=== PATIENT | male | born 1950 | race Hispanic/Latino ===

== ENCOUNTER 2017-05-12 08:46 | Inpatient (IN) | payer MEDICARE ==
[2017-05-12 09:34] LABS: Basophils # (Auto) 0.1 K/mm3 (0.0-0.1); Basophils % (Auto) 0.6 % (0.0-1.8); Eosinophils # (Auto) 0.2 K/mm3 (0.0-0.4); Eosinophils % (Auto) 1.3 % (0.0-4.3); Hematocrit 41.4 % (35.5-45.6); Hemoglobin 13.3 gm/dl (11.8-15.2); Lymphocytes # (Auto) 0.8 K/mm3 (1.2-5.4); Lymphocytes % (Auto) 5.3 % (13.4-35.0); Mean Corpuscular HGB Conc 32 % (32-34); Mean Corpuscular Hemoglobin 29 pg (28-32); Mean Corpuscular Volume 89 fl (84-94); Monocytes # (Auto) 0.5 K/mm3 (0.0-0.8); Monocytes % (Auto) 3.5 % (0.0-7.3); Platelet Count 224 K/mm3 (140-440); Red Blood Count 4.64 M/mm3 (3.65-5.03); Red Cell Distribution Width 15.4 % (13.2-15.2)
--- NOTE | 2017-05-12 09:35 | XRay Report ---
AP CHEST: HISTORY: Fever, sepsis No comparison. Cardiomegaly and pulmonary venous congestion are identified. Small pleural effusions are likely present. Bronchovascular markings at the lung bases are prominent which is probably related to congestion. No convincing infiltrate with air bronchograms. IMPRESSION: Mild CHF.
[2017-05-12 09:44] LABS: INR 0.85 (0.87-1.13)
--- NOTE | 2017-05-12 09:49 | Emergency Department Report ---
ED General Adult HPI - General Chief complaint: Dyspnea/Respdistress Stated complaint: PEDRITO Time Seen by Provider: 05/12/17 08:56 Source: patient, EMS Mode of arrival: Stretcher Limitations: Physical Limitation - History of Present Illness Initial comments: The patient is a 66-year-old male with a history of COPD, CHF, diabetes. He was recently hospitalized at [facility] he states with pneumonia. He has had occasional cough which is not productive. He's been short of breath since last night. He denies fever or chills. He does not complain of active chest pain. Patient was transported via EMS on CPAP. He was given 2 nebs in route. Paramedics state that his pulse oximetry was 77% on their arrival. They initiated an IV but did not give any intravenous medication. -: Gradual, days(s) Location: chest (minimal chest pain) Radiation: non-radiation Severity scale (0 -10): 0 Quality: dull Consistency: intermittent Improves with: none Worsens with: none Associated Symptoms: shortness of breath Treatments Prior to Arrival: none - Related Data Home Medications Medication Instructions Recorded Confirmed Last Taken Allopurinol 300 mg PO DAILY 05/12/17 05/12/17 05/11/17 Carvedilol 25 mg PO BID 05/12/17 05/12/17 05/11/17 Furosemide [Lasix TAB] 40 mg PO QDAY 05/12/17 05/12/17 05/11/17 Allergies Allergy/AdvReac Type Severity Reaction Status Date / Time No Known Allergies Allergy Unverified 05/12/17 08:59 ED Review of Systems ROS: Stated complaint: PEDRITO Other details as noted in HPI Constitutional: denies: chills, fever Eyes: denies: eye pain, eye discharge, vision change ENT: denies: ear pain, throat pain Respiratory: shortness of breath. denies: cough, wheezing Cardiovascular: denies: chest pain, palpitations Endocrine: no symptoms reported Gastrointestinal: denies: abdominal pain, nausea, diarrhea Genitourinary: denies: urgency, dysuria Musculoskeletal: denies: back pain, joint swelling, arthralgia Skin: denies: rash, lesions Neurological: denies: headache, weakness, paresthesias Psychiatric: denies: anxiety, depression Hematological/Lymphatic: denies: easy bleeding, easy bruising ED Past Medical Hx - Past Medical History Previous Medical History?: Yes Hx Congestive Heart Failure: Yes Hx Diabetes: Yes Hx COPD: Yes - Social History Smoking Status: Never Smoker Substance Use Type: Alcohol - Medications Home Medications: Home Medications Medication Instructions Recorded Confirmed Last Taken Type Allopurinol 300 mg PO DAILY 05/12/17 05/12/17 05/11/17 History Carvedilol 25 mg PO BID 05/12/17 05/12/17 05/11/17 History Furosemide [Lasix TAB] 40 mg PO QDAY 05/12/17 05/12/17 05/11/17 History ED Physical Exam - General Limitations: Physical Limitation General appearance: alert, in no apparent distress, obese - Head Head exam: Present: atraumatic, normocephalic - Eye Eye exam: Present: normal appearance, PERRL, EOMI. Absent: scleral icterus - ENT ENT exam: Present: mucous membranes moist - Neck Neck exam: Present: normal inspection - Respiratory Respiratory exam: Present: accessory muscle use, decreased breath sounds. Absent: respiratory distress - Cardiovascular Cardiovascular Exam: Present: regular rate, normal rhythm. Absent: systolic murmur, diastolic murmur, rubs, gallop - GI/Abdominal GI/Abdominal exam: Present: soft, normal bowel sounds. Absent: distended, tenderness, guarding, rebound, rigid - Rectal Rectal exam: Present: deferred - Extremities Exam Extremities exam: Present: normal inspection, normal capillary refill. Absent: tenderness, pedal edema, joint swelling, calf tenderness - Back Exam Back exam: Present: normal inspection - Neurological Exam Neurological exam: Present: alert, oriented X3, CN II-XII intact. Absent: motor sensory deficit - Psychiatric Psychiatric exam: Present: normal affect, normal mood - Skin Skin exam: Present: warm, dry, intact, normal color. Absent: rash ED Course Vital Signs 05/12/17 05/12/17 05/12/17 08:46 08:55 08:58 Pulse Rate 104 H Respiratory 26 H 26 H Rate Blood Pressure Blood Pressure 147/93 [Left] O2 Sat by Pulse 91 94 94 Oximetry 05/12/17 05/12/17 05/12/17 09:00 09:10 09:30 Pulse Rate 108 H 104 H 100 H Respiratory 21 17 19 Rate Blood Pressure 127/86 137/101 Blood Pressure [Left] O2 Sat by Pulse 93 93 Oximetry 05/12/17 10:00 Pulse Rate 99 H Respiratory 18 Rate Blood Pressure 147/101 Blood Pressure [Left] O2 Sat by Pulse Oximetry - Reevaluation(s) Reevaluation #1: Patient was placed on BiPAP on arrival. He proceeded to do well. He was given Lasix. His chest x-ray was consistent with CHF. The radiologist did not believe that he had any signs of pneumonia. Nonetheless he was given 1 dose of Levaquin. He was admitted to telemetry in stable and improved condition. He was able to speak in adequate sentences even though he was on BiPAP. He stated he was much improved. Patient was given 1 dose of insulin. 05/12/17 11:02 05/12/17 11:[address] Barclay. the patient was admitted to the Hopsitalist service. ED Medical Decision Making - Lab Data Result diagrams: 05/12/17 09:02 05/12/17 09:02 Laboratory Results - last 24 hr 05/12/17 05/12/17 05/12/17 09:02 09:02 09:02 WBC 15.2 H RBC 4.64 Hgb 13.3 Hct 41.4 MCV 89 MCH 29 MCHC 32 RDW 15.4 H Plt Count 224 Lymph % (Auto) 5.3 L [place] % (Auto) 3.5 Eos % (Auto) 1.3 Baso % (Auto) 0.6 Lymph # 0.8 L [place] # 0.5 Eos # 0.2 Baso # 0.1 Seg Neutrophils % 89.3 H Seg Neutrophils # 13.6 H PT 12.0 L INR 0.85 L APTT 23.0 L Lactic Acid 2.00 Laboratory Results - last 24 hr 05/12/17 05/12/17 05/12/17 09:02 09:02 09:02 WBC 15.2 H RBC 4.64 Hgb 13.3 Hct 41.4 MCV 89 MCH 29 MCHC 32 RDW 15.4 H Plt Count 224 Lymph % (Auto) 5.3 L [place] % (Auto) 3.5 Eos % (Auto) 1.3 Baso % (Auto) 0.6 Lymph # 0.8 L [place] # 0.5 Eos # 0.2 Baso # 0.1 Seg Neutrophils % 89.3 H Seg Neutrophils # 13.6 H PT 12.0 L INR 0.85 L APTT 23.0 L ABG pH ABG pCO2 ABG pO2 ABG HCO3 ABG O2 Saturation ABG O2 Content ABG Base Excess ABG Hemoglobin ABG Carboxyhemoglobin ABG Methemoglobin Oxyhemoglobin FiO2 Sodium 132 L Potassium 4.9 Chloride 95.6 L Carbon Dioxide 21 L Anion Gap 20 BUN 35 H Creatinine 1.5 Estimated GFR 47 BUN/Creatinine Ratio 23 Glucose 497 H Lactic Acid Calcium 8.6 Total Bilirubin 0.30 Direct Bilirubin < 0.2 AST 27 ALT 38 Alkaline Phosphatase 153 H Troponin T 0.012 NT-Pro-B Natriuret Pep Total Protein 6.6 Albumin 3.6 L Albumin/Globulin Ratio 1.2 05/12/17 05/12/17 05/12/17 09:02 09:02 09:39 WBC RBC Hgb Hct MCV MCH MCHC RDW Plt Count Lymph % (Auto) [place] % (Auto) Eos % (Auto) Baso % (Auto) Lymph # [place] # Eos # Baso # Seg Neutrophils % Seg Neutrophils # PT INR APTT ABG pH 7.300 L ABG pCO2 44.6 ABG pO2 71.2 L ABG HCO3 21.5 ABG O2 Saturation 93.0 L ABG O2 Content 16.5 ABG Base Excess -4.8 L ABG Hemoglobin 12.9 L ABG Carboxyhemoglobin 1.6 ABG Methemoglobin 0.4 Oxyhemoglobin 91.1 L FiO2 25 Sodium Potassium Chloride Carbon Dioxide Anion Gap BUN Creatinine Estimated GFR BUN/Creatinine Ratio Glucose Lactic Acid 2.00 Calcium Total Bilirubin Direct Bilirubin AST ALT Alkaline Phosphatase Troponin T NT-Pro-B Natriuret Pep 2085 H Total Protein Albumin Albumin/Globulin Ratio - EKG Data -: EKG Interpreted by Me EKG shows normal: sinus rhythm, axis, intervals Rate: normal - EKG Data Interpretation: no acute changes, other (intraventricular conduction delay 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 ED Disposition Clinical Impression: Respiratory failure Qualifiers: Chronicity: unspecified Respiratory failure complication: hypoxia Qualified Code(s): J96.91 - Respiratory failure, unspecified with hypoxia Congestive heart failure Qualifiers: Heart failure type: combined systolic and diastolic Heart failure chronicity: acute on chronic Qualified Code(s): I50.43 - Acute on chronic combined systolic (congestive) and diastolic (congestive) heart failure Hyperglycemia due to type 2 diabetes mellitus Qualifiers: Diabetes mellitus dehydrogenation supervisor insulin use: with dehydrogenation supervisor use Qualified Code(s): E11.65 - Type 2 diabetes mellitus with hyperglycemia; Z79.4 - database consultant (current ) use of insulin Disposition: OP ADMIT IP TO THIS HOSP Is pt being admited?: Yes Does the pt Need Aspirin: Yes Condition: Stable Instructions: Diabetes Mellitus Type 2 in Adults (ED) Referrals: PRIMARY CARE, [Primary Care Provider] - 3-5 Days Time of Disposition: 11:06
[2017-05-12] MEDS ORDERED: LEVAQUIN 750MG/150ML 750 MG/150 ML BAG IV ONE (09:50)
[2017-05-12] MEDS ORDERED: LASIX IV ONE (09:50)
[2017-05-12 09:51] LABS: ABG Base Excess -4.8 mmol/L (-2.0-3.0); ABG HCO3 21.5 mmol/L (20.0-26.0); ABG Methemoglobin 0.4 % (0.0-1.5); ABG PCO2 44.6 mm Hg; ABG PH 7.3 pH Units (7.350-7.450); ABG PO2 71.2 mm Hg (80.0-90.0)
[2017-05-12 09:52] LABS: Alanine Aminotransferase 38 units/L (7-56); Albumin 3.6 g/dL (3.9-5); BUN/Creatinine Ratio 23; Blood Urea Nitrogen 35 mg/dL (9-20); Calcium 8.6 mg/dL (8.4-10.2); Hemolysis Index 19
[2017-05-12] MEDS ORDERED: HumuLIN R IV ONE (09:58)
[2017-05-12 10:02] LABS: Bilirubin,Direct < 0.2 mg/dL (0-0.2)
[2017-05-12] MEDS ORDERED: ASPIRIN PO ONE (11:06)
[2017-05-12 12:13] LABS: Bacteria,Urine 1+ /HPF (Negative); Bilirubin,Urine NEG (Negative); Blood,Urine NEG (Negative); Color,Urine Straw (Yellow); Protein,Urine <15 mg/dL mg/dL (Negative); Urobilinogen,Urine < 2.0 mg/dL (<2.0)
--- NOTE | 2017-05-12 13:48 | History and Physical Report ---
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 after episode of pneumonia and COPD. He is still on a tapering dose of steroids. He presents to [facility] ED via EMS due to acute onset of constant severe SOB, pulse ox documented as 77%, placed on bipap. Now, weaned off and he is doing better. He denies any high-grade or relieving factors shortness of breath. Denies any chest pains. Denies any fever or chills. He does have nonproductive cough does not worsen. 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 Cholecystectomy Social history: Ex-smoker quit in 2009, no alcohol or drug abuse, Family history: Very significant for early coronary artery disease. His father and 2 brothers at age 50 from heart attack, and another brother who from heart failure a 65 years old. Also hypertension denies diabetes ROS: Constitutional: denies: fever ENT: denies: throat or neck pain Respiratory: +cough, shortness of breath Cardiovascular: denies: chest pain Endocrine: denies unexplained weight loss or gain Gastrointestinal: denies: abdominal pain, nausea Genitourinary: denies: dysuria Rectal: denies no incontinence, no bleeding, no itching, no discharge Musculoskeletal: denies swelling, myaglia, muscle weakness Skin: denies: rash Neurological: denies: headache Hematological/Lymphatic: denies: easy bleeding or easy bruising Allergic/Immunologic: no urticaria, no allergic rhinitis, no anaphylaxis Psych: denies sadness or hopelessness, SI/HI Medications and Allergies Allergies Allergy/AdvReac Type Severity Reaction Status Date / Time No Known Allergies Allergy Unverified 05/12/17 08:59 Home Medications Medication Instructions Recorded Confirmed Last Taken Type Allopurinol 300 mg PO DAILY 05/12/17 05/12/17 05/11/17 History Carvedilol 25 mg PO BID 05/12/17 05/12/17 05/11/17 History Furosemide [Lasix TAB] 40 mg PO QDAY 05/12/17 05/12/17 05/11/17 History Exam - Physical Exam Narrative exam: GEN: ill appeaing, NAD, AWAKE, ALERT, ORIENTATED x 3, blue bloater appearance, has buffalo hump, very thin legs HEENT: NCAT, EOMI, PERRL, OP Clear NECK: supple, no adenopathy, no thyromegaly, no JVD CVS/HEART: RRR, NORMAL S1S2, pulses present bilaterally CHEST/LUNGS: bilateral crackles, Symmetrical chest expansion, good air entry bilaterally GI/Abdomen: soft, NTND, good bowel sounds, no guarding or rebound /Bladder: no suprapubic tenderness, no CVA or paraspinal tenderness EXT/Skin: no c/c/e, no obvious rash MSK: FROM x 4 Neuro: CN 2-12 grossly intact, no new focal deficits Psych: calm - Constitutional Vitals: Temp Pulse Resp BP Pulse Ox 87 16 127/82 96 05/12/17 13:00 05/12/17 13:00 05/12/17 13:00 05/12/17 13:00 Results - Labs CBC & Chem 7: 05/12/17 09:02 05/12/17 09:02 Labs: Abnormal lab results 05/12/17 05/12/17 05/12/17 Range/Units 09:02 09:02 09:02 WBC 15.2 H (4.5-11.0) K/mm3 RDW 15.4 H (13.2-15.2) % Lymph % (Auto) 5.3 L (13.4-35.0) % Lymph # 0.8 L (1.2-5.4) K/mm3 Seg Neutrophils % 89.3 H (40.0-70.0) % Seg Neutrophils # 13.6 H (1.8-7.7) K/mm3 PT 12.0 L (12.2-14.9) Sec. INR 0.85 L (0.87-1.13) APTT 23.0 L (24.2-36.6) Sec. ABG pH (7.350-7.450) pH Units ABG pO2 (80.0-90.0) mm Hg ABG O2 Saturation (95.0-99.0) % ABG Base Excess (-2.0-3.0) mmol/L ABG Hemoglobin (14.0-18.0) gm/dl Oxyhemoglobin (95.0-99.0) % Sodium 132 L (137-145) mmol/L Chloride 95.6 L (98-107) mmol/L Carbon Dioxide 21 L (22-30) mmol/L BUN 35 H (9-20) mg/dL Glucose 497 H (75-100) mg/dL POC Glucose (70-105) Alkaline Phosphatase 153 H (35-129) units/L NT-Pro-B Natriuret Pep (0-900) pg/mL Albumin 3.6 L (3.9-5) g/dL 05/12/17 05/12/17 05/12/17 Range/Units 09:02 09:39 11:06 WBC (4.5-11.0) K/mm3 RDW (13.2-15.2) % Lymph % (Auto) (13.4-35.0) % Lymph # (1.2-5.4) K/mm3 Seg Neutrophils % (40.0-70.0) % Seg Neutrophils # (1.8-7.7) K/mm3 PT (12.2-14.9) Sec. INR (0.87-1.13) APTT (24.2-36.6) Sec. ABG pH 7.300 L (7.350-7.450) pH Units ABG pO2 71.2 L (80.0-90.0) mm Hg ABG O2 Saturation 93.0 L (95.0-99.0) % ABG Base Excess -4.8 L (-2.0-3.0) mmol/L ABG Hemoglobin 12.9 L (14.0-18.0) gm/dl Oxyhemoglobin 91.1 L (95.0-99.0) % Sodium (137-145) mmol/L Chloride (98-107) mmol/L Carbon Dioxide (22-30) mmol/L BUN (9-20) mg/dL Glucose (75-100) mg/dL POC Glucose 420 H (70-105) Alkaline Phosphatase (35-129) units/L NT-Pro-B Natriuret Pep 2085 H (0-900) pg/mL Albumin (3.9-5) g/dL 05/12/17 Range/Units 13:36 WBC (4.5-11.0) K/mm3 RDW (13.2-15.2) % Lymph % (Auto) (13.4-35.0) % Lymph # (1.2-5.4) K/mm3 Seg Neutrophils % (40.0-70.0) % Seg Neutrophils # (1.8-7.7) K/mm3 PT (12.2-14.9) Sec. INR (0.87-1.13) APTT (24.2-36.6) Sec. 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 after episode of pneumonia and COPD. He is still on a tapering dose of steroids. He presents to [facility] ED via EMS due to acute onset of constant severe SOB, pulse ox documented as 77%, placed on bipap. Now, weaned off Bipap and he is doing better. He is being admitted for CHF. pCXR reported as mild CHF WBC 15.2 but he is on steroids -Acute on chronic hypoxic respiratory failure, most likely due to CHF: Treat with oxygen, NIV as needed -Acute on chronic systolic heart failure: Consult cardiology, treated with IV Lasix, obtain recent echocardiogram from [facility] -Suspected Chronic kidney disease stage III without a Known baseline: Records from [facility] would be helpful, repeat BMP -Metabolic acidosis with superimposed respiratory acidosis: treat the hypoxemia and elevated blood sugars -Uncontrolled diabetes mellitus: As sliding scale and Lantus -SIRS w/o infection: follow blood cultures -Recent PNA, no consolidation on cxr, continue to monitor, given 1 dose of Levaquin in ED -DVT/GI prophylaxis reviewed
[2017-05-12] MEDS ORDERED: D50W (25GM) Syringe IV PRN (14:05)
[2017-05-12] MEDS: DUONEB *Not for PRN Use IH SCH ×2 (15:12→19:58)
[2017-05-12] MEDS: HumaLOG SUB-Q SCH ×2 (17:00→23:29)
[2017-05-12 20:04] LABS: Chol/HDL Ratio 2.89 %
[2017-05-12] MEDS: LASIX IV SCH (21:22)
[2017-05-12] MEDS ORDERED: ULTRAM PO ONE (21:32)
[2017-05-12] MEDS: TYLENOL PO PRN (22:42)
[2017-05-12] MEDS: COREG PO SCH (22:42)
[2017-05-12] MEDS: NEURONTIN PO SCH (22:42)
[2017-05-12] MEDS: LANTUS SUB-Q SCH (23:29)
[2017-05-13] MEDS ORDERED: PROAIR IH PRN (00:40)
[2017-05-13] MEDS: PROVENTIL IH PRN ×3 (01:12→11:45)
[2017-05-13 06:19] LABS: Hematocrit 37.7 % (35.5-45.6); Hemoglobin 12.3 gm/dl (11.8-15.2); Mean Corpuscular HGB Conc 33 % (32-34); Mean Corpuscular Hemoglobin 29 pg (28-32); Mean Corpuscular Volume 88 fl (84-94); Platelet Count 187 K/mm3 (140-440); Red Blood Count 4.27 M/mm3 (3.65-5.03); Red Cell Distribution Width 15.5 % (13.2-15.2)
[2017-05-13] MEDS: LASIX IV SCH ×2 (06:26→18:28)
[2017-05-13 06:52] LABS: Calcium 8.6 mg/dL (8.4-10.2)
[2017-05-13] MEDS: DUONEB *Not for PRN Use IH SCH ×3 (08:31→20:47)
[2017-05-13] MEDS: BABY ASPIRIN PO SCH (09:39)
[2017-05-13] MEDS: HumaLOG SUB-Q SCH ×4 (09:39→22:31)
[2017-05-13] MEDS: NEURONTIN PO SCH ×2 (09:40→22:30)
[2017-05-13] MEDS: COREG PO SCH ×2 (09:40→22:30)
[2017-05-13] MEDS: ZYLOPRIM PO SCH (09:40)
--- NOTE | 2017-05-13 16:05 | Progress Note ---
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 He is still on a tapering dose of steroids. He presents to [facility] ED via EMS due to acute onset of constant severe SOB, pulse ox documented as 77%, placed on bipap. Now, weaned off Bipap and he is doing better. He is being admitted for CHF. pCXR reported as mild CHF WBC 15.2 but he is on steroids -Acute on chronic hypoxic respiratory failure, most likely due to CHF: Treat with oxygen, NIV as needed -Acute on chronic systolic heart failure: Consult cardiology, treated with IV Lasix, obtain recent echocardiogram from [facility] -Suspected Chronic kidney disease stage III without a Known baseline: Records from [facility] would be helpful, repeat BMP -Metabolic acidosis with superimposed respiratory acidosis: treat the hypoxemia and elevated blood sugars -Uncontrolled diabetes mellitus: As sliding scale and Lantus -SIRS w/o infection: follow blood cultures -Recent PNA, no consolidation on cxr, continue to monitor, given 1 dose of Levaquin in ED -DVT/GI prophylaxis reviewed 05/13/17: off bipap, doing better, d/w nurse Manisha to obtain [facility]'s old records, ?need Echo Hospitalist Physical - Constitutional Vitals: Temp Pulse Resp BP Pulse Ox 97.9 F 75 18 96/55 97 05/13/17 08:58 05/13/17 14:13 05/13/17 12:07 05/13/17 08:58 05/13/17 08:58 Results - Labs CBC & Chem 7: 05/13/17 05:15 05/13/17 05:15 Labs: Laboratory Last Values WBC 10.3 K/mm3 (4.5-11.0) 05/13/17 05:15 RBC 4.27 M/mm3 (3.65-5.03) 05/13/17 05:15 Hgb 12.3 gm/dl (11.8-15.2) 05/13/17 05:15 Hct 37.7 % (35.5-45.6) 05/13/17 05:15 MCV 88 fl (84-94) 05/13/17 05:15 MCH 29 pg (28-32) 05/13/17 05:15 MCHC 33 % (32-34) 05/13/17 05:15 RDW 15.5 % (13.2-15.2) H 05/13/17 05:15 Plt Count 187 K/mm3 (140-440) 05/13/17 05:15 Lymph % (Auto) 5.3 % (13.4-35.0) L 05/12/17 09:02 [place] % (Auto) 3.5 % (0.0-7.3) 05/12/17 09:02 Eos % (Auto) 1.3 % (0.0-4.3) 05/12/17 09:02 Baso % (Auto) 0.6 % (0.0-1.8) 05/12/17 09:02 Lymph # 0.8 K/mm3 (1.2-5.4) L 05/12/17 09:02 [place] # 0.5 K/mm3 (0.0-0.8) 05/12/17 09:02 Eos # 0.2 K/mm3 (0.0-0.4) 05/12/17 09:02 Baso # 0.1 K/mm3 (0.0-0.1) 05/12/17 09:02 Seg Neutrophils % 89.3 % (40.0-70.0) H 05/12/17 09:02 Seg Neutrophils # 13.6 K/mm3 (1.8-7.7) H 05/12/17 09:02 PT 12.0 Sec. (12.2-14.9) L 05/12/17 09:02 INR 0.85 (0.87-1.13) L 05/12/17 09:02 APTT 23.0 Sec. (24.2-36.6) L 05/12/17 09:02 ABG pH 7.300 pH Units (7.350-7.450) L 05/12/17 09:39 ABG pCO2 44.6 mm Hg 05/12/17 09:39 ABG pO2 71.2 mm Hg (80.0-90.0) L 05/12/17 09:39 ABG HCO3 21.5 mmol/L (20.0-26.0) 05/12/17 09:39 ABG O2 Saturation 93.0 % (95.0-99.0) L 05/12/17 09:39 ABG O2 Content 16.5 (0.0-44) 05/12/17 09:39 ABG Base Excess -4.8 mmol/L (-2.0-3.0) L 05/12/17 09:39 ABG Hemoglobin 12.9 gm/dl (14.0-18.0) L 05/12/17 09:39 ABG Carboxyhemoglobin 1.6 % (0.0-5.0) 05/12/17 09:39 ABG Methemoglobin 0.4 % (0.0-1.5) 05/12/17 09:39 Oxyhemoglobin 91.1 % (95.0-99.0) L 05/12/17 09:39 FiO2 25 % 05/12/17 09:39 Sodium 142 mmol/L (137-145) D 05/13/17 05:15 Potassium 3.8 mmol/L (3.6-5.0) D 05/13/17 05:15 Chloride 103.1 mmol/L (98-107) 05/13/17 05:15 Carbon Dioxide 21 mmol/L (22-30) L 05/13/17 05:15 Anion Gap 22 mmol/L 05/13/17 05:15 BUN 33 mg/dL (9-20) H 05/13/17 05:15 Creatinine 1.4 mg/dL (0.8-1.5) 05/13/17 05:15 Estimated GFR 51 ml/min 05/13/17 05:15 BUN/Creatinine Ratio 24 % 05/13/17 05:15 Glucose 243 mg/dL (75-100) H 05/13/17 05:15 POC Glucose 263 (70-105) H 05/13/17 05:54 Lactic Acid 2.90 mmol/L (0.7-2.0) H* 05/12/17 23:15 Calcium 8.6 mg/dL (8.4-10.2) 05/13/17 05:15 Magnesium 2.40 mg/dL (1.7-2.3) H 05/13/17 05:15 Total Bilirubin 0.30 mg/dL (0.1-1.2) 05/12/17 09:02 Direct Bilirubin < 0.2 mg/dL (0-0.2) 05/12/17 09:02 AST 27 units/L (5-40) 05/12/17 09:02 ALT 38 units/L (7-56) 05/12/17 09:02 Alkaline Phosphatase 153 units/L (35-129) H 05/12/17 09:02 Troponin T 0.033 ng/mL (0.00-0.029) H 05/13/17 00:20 NT-Pro-B Natriuret Pep 2085 pg/mL (0-900) H 05/12/17 09:02 Total Protein 6.6 g/dL (6.3-8.2) 05/12/17 09:02 Albumin 3.6 g/dL (3.9-5) L 05/12/17 09:02 Albumin/Globulin Ratio 1.2 % 05/12/17 09:02 Triglycerides 125 mg/dL (2-149) 05/12/17 19:02 Cholesterol 136 mg/dL (50-199) 05/12/17 19:02 LDL Cholesterol Direct 75 mg/dL (50-130) 05/12/17 19:02 HDL Cholesterol 47 mg/dL (40-59) 05/12/17 19:02 Cholesterol/HDL Ratio 2.89 % 05/12/17 19:02 Urine Color Straw (Yellow) 05/12/17 11:48 Urine Turbidity Clear (Clear) 05/12/17 11:48 Urine pH 5.0 (5.0-7.0) 05/12/17 11:48 Ur Specific [place] 1.010 (1.003-1.030) 05/12/17 11:48 Urine Protein <15 mg/dl mg/dL (Negative) 05/12/17 11:48 Urine Glucose (UA) >=500 mg/dL (Negative) 05/12/17 11:48 Urine Ketones Neg mg/dL (Negative) 05/12/17 11:48 Urine Blood Neg (Negative) 05/12/17 11:48 Urine Nitrite Neg (Negative) 05/12/17 11:48 Urine Bilirubin Neg (Negative) 05/12/17 11:48 Urine Urobilinogen < 2.0 mg/dL (<2.0) 05/12/17 11:48 Ur Leukocyte Esterase Neg (Negative) 05/12/17 11:48 Urine WBC (Auto) 1.0 /HPF (0.0-6.0) 05/12/17 11:48 Urine RBC (Auto) 2.0 /HPF (0.0-6.0) 05/12/17 11:48 Urine Bacteria (Auto) 1+ /HPF (Negative) 05/12/17 11:48
--- NOTE | 2017-05-13 18:40 | Consultation ---
History of Present Illness Consult date: 05/13/17 Consult reason: congestive heart failure History of present illness: The patient is a 66-year-old man with a history of coronary artery disease and heart failure. He previously lived in [place] where he underwent cardiac catheterization with coronary stenting in 2009. He moved to [place] within the past 3 months. 2 weeks ago, he states that he was hospitalized at [facility] with heart failure. His treatment included noninvasive cardiac workup, he states he has not had invasive coronary evaluation since his initial stenting 8 years ago. On this presentation, EKG is sinus with frequent PACs, right bundle branch block , no acute ST or T-wave changes. Chest x-ray is consistent with interstitial edema and moderate heart failure. An echocardiogram is pending for left ventricle function and valvular function assessment. Past History Past Medical History: CAD, heart failure, hypertension Medications and Allergies Allergies Allergy/AdvReac Type Severity Reaction Status Date / Time No Known Allergies Allergy Unverified 05/12/17 08:59 Home Medications Medication Instructions Recorded Confirmed Last Taken Type Allopurinol 300 mg PO DAILY 05/12/17 05/12/17 05/11/17 History Carvedilol 25 mg PO BID 05/12/17 05/12/17 05/11/17 History Furosemide [Lasix TAB] 40 mg PO QDAY 05/12/17 05/12/17 05/11/17 History Active Meds: Active Medications Acetaminophen (Tylenol) 650 mg PO Q6H PRN PRN Reason: Pain, Mild (1-3) Last Admin: 05/12/17 22:42 Dose: 650 mg Albuterol (Proventil) 2.5 mg IH Q4HRT PRN PRN Reason: Shortness Of Breath Last Admin: 05/13/17 11:45 Dose: 2.5 mg Albuterol/Ipratropium (Duoneb *Not For Prn Use*) 1 ampul IH BIDRT [facility] Last Admin: 05/13/17 18:31 Dose: 1 ampul Allopurinol (Zyloprim) 300 mg PO DAILY [facility] Last Admin: 05/13/17 09:40 Dose: 300 mg Aspirin (Baby Aspirin) 81 mg PO QDAY [facility] Last Admin: 05/13/17 09:39 Dose: 81 mg Carvedilol (Coreg) 25 mg PO BID [facility] Last Admin: 04/02/18 09:40 Dose: 25 mg Dextrose (D50w (25gm) Syringe) 50 ml IV PRN PRN PRN Reason: Hypoglycemia Furosemide (Lasix) 40 mg IV 0600,1800 [facility] Last Admin: 05/13/17 18:28 Dose: 40 mg Gabapentin (Neurontin) 600 mg PO BID [facility] Last Admin: 05/13/17 09:40 Dose: 600 mg Insulin Glargine (Lantus) 10 units SUB-Q QHS [facility] Last Admin: 05/12/17 23:29 Dose: 10 units Insulin Human Lispro (Humalog) 0 unit SUB-Q ACHS [facility]; Protocol Last Admin: 05/13/17 18:28 Dose: 8 unit Review of Systems Cardiovascular: orthopnea, edema, shortness of breath, no chest pain, no palpitations, no rapid/irregular heart beat, no syncope, no lightheadedness Physical Examination Vital Signs Pulse Ox 91 05/12/17 08:46 General appearance: no acute distress HEENT: Positive: PERRL Neck: Positive: neck supple Cardiac: Positive: Reg Rate and Rhythm Lungs: Positive: Decreased Breath Sounds Neuro: Positive: Grossly Intact Abdomen: Positive: Soft Male genitourinary: Positive: deferred Skin: Positive: Clear Extremities: Present: edema (trace) Results 05/13/17 05:15 05/13/17 05:15 Lipids 05/12/17 Range/Units 19:02 Triglycerides 125 (2-149) mg/dL Cholesterol 136 (50-199) mg/dL HDL Cholesterol 47 (40-59) mg/dL Cholesterol/HDL Ratio 2.89 % CBC 05/13/17 Range/Units 05:15 WBC 10.3 (4.5-11.0) K/mm3 RBC 4.27 (3.65-5.03) M/mm3 Hgb 12.3 (11.8-15.2) gm/dl Hct 37.7 (35.5-45.6) % Plt Count 187 (140-440) K/mm3 Comprehensive Metabolic Panel 05/13/17 Range/Units 05:15 Sodium 142 D (137-145) mmol/L Potassium 3.8 D (3.6-5.0) mmol/L Chloride 103.1 (98-107) mmol/L Carbon Dioxide 21 L (22-30) mmol/L BUN 33 H (9-20) mg/dL Creatinine 1.4 (0.8-1.5) mg/dL Glucose 243 H (75-100) mg/dL Calcium 8.6 (8.4-10.2) mg/dL EKG interpretations - Telemetry EKG Rhythm: Sinus Rhythm Assessment and Plan - Patient Problems (1) Congestive heart failure Current Visit: Yes Status: Acute Qualifiers: Heart failure type: combined systolic and diastolic Heart failure chronicity: acute on chronic Qualified Code(s): I50.43 - Acute on chronic combined systolic (congestive) and diastolic (congestive) heart failure Plan to address problem: The patient has recurrent heart failure, and history of coronary artery disease , previous coronary stenting 8 years ago in [place]. We'll recommend at this time to proceed with a right and left heart catheterization for optimal assessment of his recurrent heart failure and coronary disease.
[2017-05-13] MEDS ORDERED: NACL 0.9% 500 ML 500 ML IV SCH (19:00)
[2017-05-13] MEDS: LANTUS SUB-Q SCH (22:31)
[2017-05-13] MEDS: TYLENOL PO PRN (22:31)
[2017-05-14 05:32] LABS: Hemoglobin 13.1 gm/dl (11.8-15.2); Mean Corpuscular HGB Conc 32 % (32-34); Mean Corpuscular Hemoglobin 29 pg (28-32); Mean Corpuscular Volume 89 fl (84-94); Platelet Count 204 K/mm3 (140-440); Red Blood Count 4.58 M/mm3 (3.65-5.03); Red Cell Distribution Width 15.7 % (13.2-15.2)
[2017-05-14 05:53] LABS: Calcium 8.7 mg/dL (8.4-10.2)
[2017-05-14] MEDS: LASIX IV SCH (06:41)
[2017-05-14] MEDS ORDERED: HEPARIN 10,000 UNITS/10 ML ONE (08:17)
[2017-05-14] MEDS ORDERED: NITROGLYCERIN SYRINGE 0 ML ONE (08:17)
[2017-05-14] MEDS ORDERED: HEPARIN/NS 5000 UNIT/500ML(CATH LAB) 0 ML IR ONE (08:17)
[2017-05-14] MEDS ORDERED: CALAN ONE (08:17)
[2017-05-14] MEDS ORDERED: XYLOCAINE 2% INFILTRATI ONE (08:17)
[2017-05-14] MEDS ORDERED: SUBLIMAZE ONE (08:18)
[2017-05-14] MEDS ORDERED: NACL 0.9% 500 ML 0 ML ONE (08:18)
[2017-05-14] MEDS ORDERED: VERSED ONE (08:18)
--- NOTE | 2017-05-14 08:45 | Event Note ---
Date: 05/14/17 For further evaluation of his CAD and recurrent HF, I recommended a R/L cardiac catheterization, which the patient adamantly refuses. He wants conservative management, and insists that he feels well, wants to go home today and follow up with his regular doctors as outpatient. On discharge, we will treat with cardvedilol, imdur, ASA, diuretics and statin. His low normal BP will not tolerate DUONG or afterload therapy. He is strongly advised to folow up with human resources project manager in 3-5 days after leaving the hospital. Risks of noncompliance include recurrent HF, PA and cardiac .
--- NOTE | 2017-05-14 08:52 | Discharge Summary ---
Providers - Providers Date of Admission: 05/12/17 10:08 Attending physician: STACEY HERNANDEZ 05/12/17 13:41 Consult to Physician [CONS] Routine Comment: Consulting Provider: REE HOLCOMB Physician Instructions: Reason For Exam: CHF Primary care physician: MANGLE PRESS CATCHER Hospitalization Condition: Stable Disposition: DC-30 STILL A PATIENT Exam - Constitutional Vitals: Temp Pulse Resp BP Pulse Ox 97.5 F L 75 20 94/52 95 05/14/17 06:38 05/14/17 06:38 05/14/17 06:38 05/14/17 06:38 05/14/17 06:38 Plan Follow up with: PRIMARY CARE, [Primary Care Provider] - 3-5 Days Prescriptions: Simvastatin 40 mg PO QHS #30 tablet Aspirin [Aspir-Low] 81 mg PO DAILY #30 tablet. ISOSORBIDE MONOnitrate [Imdur ER] 30 mg PO DAILY #30 tab.er.24h
[2017-05-14] MEDS: DUONEB *Not for PRN Use IH SCH (10:08)
[2017-05-14] MEDS: NEURONTIN PO SCH (10:10)
[2017-05-14] MEDS: BABY ASPIRIN PO SCH (10:11)
[2017-05-14] MEDS: COREG PO SCH (10:11)
[2017-05-14] MEDS: ZYLOPRIM PO SCH (10:11)
[2017-05-14] MEDS: HumaLOG SUB-Q SCH ×2 (10:15→13:25)
[2017-05-14 12:24] VITALS: BP 105/62
== END 2017-05-14 17:05 | disposition home or self-care (01) | DRG 291 ==
LOC: ED 08:46 → 4A 10:08
PROVIDERS: ADMIT Internal Medicine; ATTEND Hospitalist
PROC: 4A033R1 Measurement of Arterial Saturation, Peripheral, Percutaneous Approach (ICD-10-PCS; principal; 2017-05-12)
PROC: 5A09457 Assistance with Respiratory Ventilation, 24-96 Consecutive Hours, Continuous Positive Airway Pressure (ICD-10-PCS; 2017-05-12)
DX: I13.0 Hypertensive heart and chronic kidney disease with heart failure and stage 1 through stage 4 chronic kidney disease, or unspecified chronic kidney disease (principal); I50.23 Acute on chronic systolic (congestive) heart failure; J96.21 Acute and chronic respiratory failure with hypoxia; R65.10 Systemic inflammatory response syndrome (SIRS) of non-infectious origin without acute organ dysfunction; E87.2 Acidosis; N18.3 Chronic kidney disease, stage 3 (moderate); J44.9 Chronic obstructive pulmonary disease, unspecified; E11.65 Type 2 diabetes mellitus with hyperglycemia; I25.10 Atherosclerotic heart disease of native coronary artery without angina pectoris; I25.2 Old myocardial infarction; Z87.891 Personal history of nicotine dependence; Z90.49 Acquired absence of other specified parts of digestive tract; E11.22 Type 2 diabetes mellitus with diabetic chronic kidney disease
CPT/HCPCS: 36415; 71045; 80048; 80061; 80074; 81001; 82140; 82803; 82962; 83735; 83880; 84484; 85025; 85027; 85610; 85730; 87040; 87086; 93005; 93010; 94640; 94660; 94760; 96365; 96375; 99291; J1644; J1815; J1940; J1956; J2250; J3010; J7040

== ENCOUNTER 2017-05-30 06:11 | Day surgery (SDC) | payer MEDICARE ==
[2017-05-30] MEDS ORDERED: NACL 0.9% 500 ML 500 ML IV SCH (07:00)
[2017-05-30] MEDS ORDERED: ECOTRIN PO ONE ×2 (07:18→08:00)
[2017-05-30 07:23] LABS: Hematocrit 39.2 % (35.5-45.6); Hemoglobin 12.9 gm/dl (11.8-15.2); Mean Corpuscular HGB Conc 33 % (32-34); Mean Corpuscular Hemoglobin 29 pg (28-32); Mean Corpuscular Volume 89 fl (84-94); Platelet Count 238 K/mm3 (140-440); Red Cell Distribution Width 15.8 % (13.2-15.2)
[2017-05-30 07:33] LABS: Calcium 8.8 mg/dL (8.4-10.2)
[2017-05-30 07:38] LABS: INR 0.85 (0.87-1.13)
[2017-05-30] MEDS ORDERED: HEPARIN 10,000 UNITS/10 ML ONE (09:04)
[2017-05-30] MEDS ORDERED: HEPARIN/NS 5000 UNIT/500ML(CATH LAB) 1,000 ML IR ONE (09:04)
[2017-05-30] MEDS ORDERED: XYLOCAINE 2% INFILTRATI ONE ×2 (09:04→09:45)
[2017-05-30] MEDS ORDERED: HEPARIN/NS 5000 UNIT/500ML(CATH LAB) 500 ML IR ONE (09:04)
[2017-05-30] MEDS: SUBLIMAZE ONE ×2 (09:11→10:20)
[2017-05-30] MEDS: VERSED ONE ×2 (09:11→09:27)
[2017-05-30 09:28] LABS: Basophils % (Manual) 0 % (0.0-1.8); RBC Morphology Normal; Total Cells Counted 100
[2017-05-30] MEDS ORDERED: BABY ASPIRIN PO SCH (10:00)
[2017-05-30] MEDS ORDERED: CALAN ONE (10:12)
[2017-05-30] MEDS ORDERED: NITROGLYCERIN SYRINGE 3 ML ONE (10:12)
[2017-05-30] MEDS ORDERED: LASIX ONE (10:43)
--- NOTE | 2017-05-30 11:07 | Discharge Summary ---
Short Stay Discharge Plan Activity: advance as tolerated Weight Bearing Status: Partial Weight Bearing Diet: low fat, low cholesterol, low salt, diabetic Wound: keep clean and dry Special Instructions: no heavy lifting (3 days) Follow up with: LUIS ESTRELLA MD [Primary Care Provider] - 7 Days BELEM PEREYRA MD [Staff Physician] - 7 Days
[2017-05-30] MEDS ORDERED: NACL 0.9% 1000 ML 1,000 ML IV SCH (12:00)
--- NOTE | 2017-05-30 12:05 | Cardiac Catherization Report ---
CARDIAC CATHETERIZATION REASON FOR PROCEDURE: The patient has a history of coronary artery disease, prior LAD stent in 2009, persistent symptoms of heart failure. The right and left heart catheterization was recommended. PROCEDURE: The patient was prepped and draped in a sterile fashion after informed consent. There was difficulty in accessing the central arterial location. There was no discernible pulse in the right femoral artery. We then turned our attention to the left femoral artery where we obtained access and inserted a 6-[place] sheath. An 8-[place] sheath was inserted into the left femoral vein. Altair-Magdaleno catheterization was performed and the Altair-Magdaleno was advanced to the pulmonary artery position. However, on planned retrograde arterial catheterization, we found the left iliac artery to be completely occluded, not available for retrograde left heart catheterization. We then turned our attention to the right radial artery and despite the use of arterial ultrasound, access could not be obtained via the right radial artery. There was no discernible pulse and there was no activity discernible on Doppler ultrasound. Ultimately, we then accessed the arterial circulation via the left radial artery. A 6-B[place]wan[place] hydrophilic sheath was inserted into the left radial artery, and we administered a radial cocktail via the sheath. Left heart catheterization was then performed using a #4 left Jose Martin catheter for the left coronary artery, and a #2 right Amplatz catheter for the right coronary artery. The Amplatz catheter was used for left ventricular catheterization and angiography. The catheters were then removed. The sheath in the left femoral artery, left femoral vein and left radial artery were removed, hemostasis achieved using manual compression. The patient was returned to the postprocedure unit in stable condition. There were no complications. FINDINGS: HEMODYNAMICS: The patient's filling pressures were obtained after coronary angiography. HEMODYNAMICS: The mean right atrial pressure was 20. Right ventricular pressure was 55/25. Pulmonary artery pressure was 55/35. The mean pulmonary artery wedge pressure was 25-30. Left ventricular end-diastolic pressure was 30-35, following coronary angiography. The cardiac output was 3.95 liters per minute. CORONARY ANGIOGRAPHY: There was mild diffuse coronary calcification involving the left coronary arteries and at the root and ascending aorta. The left main coronary artery contained mild irregularities. The left anterior descending artery was completely occluded in its proximal to mid segment, within the previous stented segment. This was a long segment of chronic total occlusion within the stent, and the mid and distal LAD was reconstituted by collaterals from the right coronary system. The circumflex artery and its obtuse marginal branches contained mild luminal irregularities. The right coronary artery was a large dominant vessel that contained mild irregularities and fed collaterals to the LAD. The left ventricle was severely dilated. There was severe left ventricular systolic dysfunction, diffuse hypokinesis. Left ventricular ejection fraction was less than 5-10%. The severity of the cardiomyopathy is disproportionate to the degree of coronary artery disease evident. CONCLUSION: 1. Diffuse peripheral vasculopathy, with occluded left iliac artery, absence of pulses in the right femoral and right radial artery. Catheterization was completed using the left radial approach. 2. Elevated right and left heart filling pressures, at least [id number] pulmonary hypertension. 3. Chronic total occlusion of the proximal LAD, within the previous stented segment, with reconstitution by collaterals from the right coronary system. A single vessel coronary disease. 4. Severe, predominantly nonischemic cardiomyopathy, with ejection fraction of less than 5-10%. RECOMMENDATION: Medical therapy and risk factor modification. JOB# [id number] AVRIL/NTS
[2017-05-30] MEDS ORDERED: TYLENOL PO ONE (14:42)
[2017-05-30] MEDS ORDERED: NEURONTIN PO NR (14:44)
[2017-05-30 16:35] VITALS: BP 123/78
== END 2017-05-30 17:00 | disposition home or self-care (01) ==
LOC: CATHLABREC 06:11
PROVIDERS: ATTEND Internal Medicine Cardiovascular Disease
DX: I11.0 Hypertensive heart disease with heart failure (principal); I50.9 Heart failure, unspecified; I25.10 Atherosclerotic heart disease of native coronary artery without angina pectoris; I42.9 Cardiomyopathy, unspecified; I73.9 Peripheral vascular disease, unspecified
CPT/HCPCS: 36415; 80048; 82962; 85007; 85025; 85610; 85730; 93005; 93010; 93460; 99156; 99157; C1769; C1894; J1644; J1940; J2250; J3010; J7030; J7040; Q9967